=== PATIENT | female | born 1945 | race Caucasian/White ===

== ENCOUNTER 2018-07-23 21:00 | Inpatient (IN) | payer MEDICARE, OTHER, MEDICAID ==
[~2018-07-23 21:00] MED LIST: ATROPINE 1 MG/10 ML SYRINGE; CA CHLORIDE 10% 10 ML SYRINGE; DOPamine-D5W 1.6 MG/ML 250 ML; EPINEPHrine 0.1 MG/ML SYG; ETOMIDATE 20 MG INJ; NA BICARBONATE 8.4% 50 ML SYG; ROCURONIUM 50 MG INJ
[2018-07-23] MEDS: SOD CHLORIDE 0.9% 1,000 ML IV (21:05)
[2018-07-23] MEDS: ETOMIDATE 20 MG INJ IV (21:05)
[2018-07-23] MEDS: ROCURONIUM 50 MG INJ IV (21:06)
[2018-07-23] MEDS ORDERED: PROPOFOL 100 ML (21:10)
[2018-07-23] MEDS: PROPOFOL 100 ML IV (21:15)
[2018-07-23] MEDS: LEVETIRACETAM 1000 MG (PMX) 100 ML IVPB (21:29)
[2018-07-23 21:42] LABS: ADD MAN DIFF? NO
[2018-07-23 21:43] LABS: WHITE BLOOD COUNT 7.3 10^3/ul (4.8-10.8)
[2018-07-23 21:43] LABS: BASOPHILS % 0.1 % (0.0-2.0); EOSINOPHILS % 0.1 % (0.0-7.0); HEMATOCRIT 36.9 % (37.0-47.0); HEMOGLOBIN 12.7 g/dl (12.0-16.0); LYMPHOCYTES # 2.1 10^3/ul (0.8-2.9); LYMPHOCYTES % 28.1 % (15.0-51.0); MEAN CORPUSCULAR HEMOGLOBIN 31.7 pg (29.0-33.0); MEAN CORPUSCULAR HGB CONC 34.4 g/dl (32.0-37.0); MEAN PLATELET VOLUME 10.4 fl (7.4-10.4); MONOCYTE # 1.1 10^3/ul (0.3-0.9); MONOCYTES % 14.5 % (0.0-11.0); NEUTROPHIL # 4.1 10^3/ul (1.6-7.5); NEUTROPHILS % 56.9 % (39.0-77.0); PLATELET COUNT 149 10^3/UL (140-415); RED BLOOD COUNT 4.01 10^6/ul (4.20-5.40); RED CELL DISTRIBUTION WIDTH 12.7 % (11.5-14.5)
[2018-07-23 21:47] LABS: INR 1.04; PROTIME 13.7 Sec (11.9-14.9); PT RATIO 1.1
[2018-07-23 21:48] LABS: PARTIAL THROMBOPLASTIN TIME 28.3 Sec (25.0-35.0)
[2018-07-23 21:49] LABS: ANION GAP 16 (8-16); BLOOD UREA NITROGEN 11 mg/dl (7-20); CALCIUM 8.1 mg/dl (8.4-10.2); CARBON DIOXIDE 25 mmol/L (21-31); CHLORIDE 94 mmol/L (97-110); GLUCOSE 108 mg/dl (70-220); POTASSIUM 4.4 mmol/L (3.5-5.1); SODIUM 131 mmol/L (135-144)
[2018-07-23 21:53] LABS: ETHANOL < 10.0 mg/dl
[2018-07-23 22:01] LABS: TROPONIN-I < 0.012 ng/ml (0.000-0.120); VALPROATE 72 ug/ml (50-100)
[2018-07-23 22:03] LABS: CARBAMAZEPINE (TEGRETOL) < 3.0 ug/ml (8.0-12.0); PHENYTOIN (DILANTIN) < 3.0 ug/ml (10.0-20.0)
[2018-07-23 22:16] LABS: AMPHETAMINE/METHAMPHETAMINE Negative (NEGATIVE); BARBITURATES Negative (NEGATIVE); BENZODIAZEPINES Negative (NEGATIVE); CANNABINOIDS Negative (NEGATIVE); COCAINE Negative (NEGATIVE); OPIATES Negative (NEGATIVE)
[2018-07-23 23:03] LABS: AADO2 Arterial 161.2 mmHg (7.0-24.0); Allen Test ACCEPTAB; Arterial Base Excess 0.8 mmol/L (-3.0-3); Arterial Blood Gas Oxygen Sat 96.6 mmHG (95.0-100.0); Arterial COHb 0.1 % (0.0-3.0); Arterial Fraction of Oxyhgb 96.3 % (93.0-99.0); Arterial HCO3 24.3 mmol/L (22.0-26.0); Arterial MetHb 0.2 % (0.0-1.5); Arterial Total Hemglobin 14.5 g/dl (12.0-18.0); Arterial pCO2 35.7 mmhg (35-45); MODE VENT - AC; Site Right Radial
[2018-07-24] MEDS ORDERED: ONDANSETRON 4 MG INJ IV
[2018-07-24] MEDS ORDERED: LORAZEPAM 2 MG INJ IV
[2018-07-24] MEDS ORDERED: ALBUTEROL HFA 8 GM INHALER INH
[2018-07-24] MEDS ORDERED: IPRATROPIUM (HFA) 12.9 GM INHALER INH
[2018-07-24] MEDS: MIDAZOLAM (DRIP) 50 mg/50 mL 50 ML IV ×3 (00:29→21:03)
[2018-07-24] MEDS: DEXTROSE 5%-0.45% NACL 1,000 ML IV ×3 (00:36→21:02)
[2018-07-24 01:30] LABS: HEMOGLOBIN A1C 5.5 % (0-5.9)
[2018-07-24 07:03] LABS: ADD MAN DIFF? NO
[2018-07-24 07:16] LABS: ABNORMAL IP MESSAGE 1; BASOPHILS % 0.3 % (0.0-2.0); EOSINOPHILS % 0.3 % (0.0-7.0); HEMATOCRIT 39.2 % (37.0-47.0); HEMOGLOBIN 13.8 g/dl (12.0-16.0); LYMPHOCYTES # 3.5 10^3/ul (0.8-2.9); LYMPHOCYTES % 29.2 % (15.0-51.0); MEAN CORPUSCULAR HEMOGLOBIN 31.9 pg (29.0-33.0); MEAN CORPUSCULAR HGB CONC 35.2 g/dl (32.0-37.0); MEAN CORPUSCULAR VOLUME 90.5 fl (82.0-101.0); MONOCYTE # 1.9 10^3/ul (0.3-0.9); MONOCYTES % 15.7 % (0.0-11.0); NEUTROPHIL # 6.4 10^3/ul (1.6-7.5); NEUTROPHILS % 53.8 % (39.0-77.0); RED BLOOD COUNT 4.33 10^6/ul (4.20-5.40); RED CELL DISTRIBUTION WIDTH 12.9 % (11.5-14.5)
[2018-07-24 07:29] LABS: PLATELET COUNT 106 10^3/UL (140-415); POSITIVE DIFF @See below
[2018-07-24] MEDS: LEVETIRACETAM 500 MG TAB PO ×2 (08:11→20:54)
[2018-07-24] MEDS: ASPIRIN (EC) 81 MG TAB PO (08:12)
[2018-07-24] MEDS: METOPROLOL 25 MG TAB PO ×2 (08:12→20:53)
[2018-07-24] MEDS: FAMOTIDINE 20 MG INJ IV ×2 (08:12→20:54)
[2018-07-24 08:49] LABS: ALBUMIN 3.5 g/dl (3.3-4.9); ALBUMIN/GLOBULIN RATIO 1.12; ALKALINE PHOSPHATASE 70 IU/L (42-121); ANION GAP 13 (8-16); ASPARTATE AMINO TRANSFERASE 49 IU/L (15-46); BILIRUBIN,INDIRECT 0.4 mg/dl (0-1.1); BILIRUBIN,TOTAL 0.4 mg/dl (0.2-1.3); BLOOD UREA NITROGEN 10 mg/dl (7-20); CALCIUM 9.1 mg/dl (8.4-10.2); CARBON DIOXIDE 25 mmol/L (21-31); CHLORIDE 101 mmol/L (97-110); CREATININE 0.74 mg/dl (0.44-1.00); GLUCOSE 77 mg/dl (70-220); MAGNESIUM 1.8 mg/dl (1.7-2.5); POTASSIUM 3.8 mmol/L (3.5-5.1); SODIUM 135 mmol/L (135-144); TOTAL PROTEIN 6.6 g/dl (6.1-8.1)
[2018-07-24 08:59] LABS: ALANINE AMINOTRANSFERASE < 6 IU/L (13-69)
[2018-07-24] MEDS ORDERED: VALPROIC ACID (50 MG/ML PO SYG) NGT ×2 (09:00→09:09)
[2018-07-24 10:58] LABS: ANISOCYTOSIS 1+ (0-0); BAND NEUTROPHILS #M 0.3 10^3/ul (0.0-0.6); BAND NEUTROPHILS % (M) 3 % (0-4); LYMPHOCYTES #M 2.8 10^3/ul (0.8-2.9); LYMPHOCYTES % (M) 24 % (15-51); MONOCYTE #M 1.6 10^3/ul (0.3-0.9); MONOCYTES % (M) 14 % (0-11); PLATELET ESTIMATE DECREASED; POLYCHROMASIA 1+ (0-0); REACTIVE LYMPHOCYTES #M 1.2 10^3/ul (0.0-0.0); REACTIVE LYMPHOCYTES% (M) 10 % (0-0); SEG NEUT #M 5.9 10^3/ul (1.6-7.5); SEGMENTED NEUTROPHILS (M) % 49 % (39-77); SMUDGE%M 4 % (0-0)
[2018-07-24 15:21] LABS: ADD UMIC YES; UR ASCORBIC ACID NEGATIVE (NEGATIVE); UR BACTERIA MODERATE /HPF (NONE SEEN); UR BILIRUBIN (Dip) NEGATIVE (NEGATIVE); UR BLOOD (Dip) 1+ mg/dL (NEGATIVE); UR CLARITY SLIGHTLY CLOUDY (CLEAR); UR COLOR YELLOW (YELLOW); UR GLUCOSE (Dip) NEGATIVE (NEGATIVE); UR KETONES (Dip) NEGATIVE (NEGATIVE); UR LEUKOCYTE ESTERASE (Dip) 2+ Leu/ul (NEGATIVE); UR NITRITE (Dip) POSITIVE (NEGATIVE); UR RBC 2 /HPF (0-5); UR SPECIFIC GRAVITY (Dip) 1.006 (1.003-1.030); UR SQUAMOUS EPITHELIAL CELL FEW /HPF (FEW); UR TOTAL PROTEIN (Dip) NEGATIVE (NEGATIVE); UR UROBILINOGEN (Dip) NEGATIVE (NEGATIVE); UR WBC 4 /HPF (0-5)
[2018-07-24] MEDS: ATORVASTATIN 10 MG TAB PO (20:53)
[2018-07-24] MEDS: VALPROIC ACID LIQUID CUP 250 MG/5 ML CUP NGT (20:53)
[2018-07-24] MEDS ORDERED: NON-FORMULARY/PATIENT OWN MED (Simvastatin 20 MG) PO (21:00)
[2018-07-25] MEDS: DEXTROSE 5%-0.45% NACL 1,000 ML IV ×3 (04:34→17:43)
[2018-07-25 05:16] LABS: ADD MAN DIFF? NO
[2018-07-25 05:25] LABS: BASOPHILS % 0.2 % (0.0-2.0); EOSINOPHILS % 0.4 % (0.0-7.0); HEMATOCRIT 38.2 % (37.0-47.0); HEMOGLOBIN 13.1 g/dl (12.0-16.0); LYMPHOCYTES # 2.3 10^3/ul (0.8-2.9); LYMPHOCYTES % 23.3 % (15.0-51.0); MEAN CORPUSCULAR HEMOGLOBIN 31.5 pg (29.0-33.0); MEAN CORPUSCULAR HGB CONC 34.3 g/dl (32.0-37.0); MEAN CORPUSCULAR VOLUME 91.8 fl (82.0-101.0); MEAN PLATELET VOLUME 9.6 fl (7.4-10.4); MONOCYTE # 1.4 10^3/ul (0.3-0.9); MONOCYTES % 13.9 % (0.0-11.0); NEUTROPHILS % 61.7 % (39.0-77.0); PLATELET COUNT 132 10^3/UL (140-415); RED BLOOD COUNT 4.16 10^6/ul (4.20-5.40); RED CELL DISTRIBUTION WIDTH 13.1 % (11.5-14.5)
[2018-07-25 05:25] LABS: WHITE BLOOD COUNT 9.8 10^3/ul (4.8-10.8)
[2018-07-25 05:58] LABS: MAGNESIUM 1.7 mg/dl (1.7-2.5)
[2018-07-25 06:02] LABS: ALBUMIN/GLOBULIN RATIO 0.96; ANION GAP 10 (8-16); BILIRUBIN,TOTAL 0.4 mg/dl (0.2-1.3)
[2018-07-25 06:12] LABS: ALANINE AMINOTRANSFERASE 17 IU/L (13-69); ALKALINE PHOSPHATASE 52 IU/L (42-121); ASPARTATE AMINO TRANSFERASE 18 IU/L (15-46); BILIRUBIN,INDIRECT 0.4 mg/dl (0-1.1); BLOOD UREA NITROGEN 5 mg/dl (7-20); CALCIUM 8.6 mg/dl (8.4-10.2); CARBON DIOXIDE 27 mmol/L (21-31); CHLORIDE 102 mmol/L (97-110); CREATININE 0.71 mg/dl (0.44-1.00); GLUCOSE 118 mg/dl (70-220); POTASSIUM 3.6 mmol/L (3.5-5.1); SODIUM 135 mmol/L (135-144)
[2018-07-25 06:13] LABS: ALBUMIN 2.7 g/dl (3.3-4.9); TOTAL PROTEIN 5.5 g/dl (6.1-8.1)
[2018-07-25 07:25] LABS: IONIZED CALCIUM 1.1 mmol/L (1.1-1.4)
[2018-07-25] MEDS: LEVETIRACETAM 500 MG TAB PO ×2 (08:03→22:10)
[2018-07-25] MEDS: METOPROLOL 25 MG TAB PO ×2 (08:03→22:11)
[2018-07-25] MEDS: ASPIRIN (EC) 81 MG TAB PO (08:03)
[2018-07-25] MEDS: VALPROIC ACID LIQUID CUP 250 MG/5 ML CUP NGT ×2 (08:03→21:00)
[2018-07-25] MEDS: FAMOTIDINE 20 MG INJ IV (08:10)
[2018-07-25 14:07] LABS: AADO2 Arterial 48.4 mmHg (7.0-24.0); Allen Test ACCEPTAB; Arterial Base Excess 2.5 mmol/L (-3.0-3); Arterial Blood Gas Oxygen Sat 98.4 mmHG (95.0-100.0); Arterial COHb 0.2 % (0.0-3.0); Arterial MetHb 0.2 % (0.0-1.5); Arterial Total Hemglobin 14.8 g/dl (12.0-18.0); Arterial pCO2 36.9 mmhg (35-45); Blood Gas PS 10; MODE VENT - CPAP; Site Right Radial
[2018-07-25] MEDS ORDERED: hydrALAzine 20 MG INJ IV (18:30)
[2018-07-25] MEDS: FAMOTIDINE 20 MG TAB GTB (22:11)
[2018-07-25] MEDS: ATORVASTATIN 10 MG TAB PO (22:11)
[2018-07-26 03:52] LABS: PHENOBARBITAL <5.0 mg/L (15.0-40.0)
[2018-07-26] MEDS: DEXTROSE 5%-0.45% NACL 1,000 ML IV ×2 (04:57→15:53)
[2018-07-26 09:18] LABS: ADD MAN DIFF? NO
[2018-07-26 09:20] LABS: BASOPHILS % 0.4 % (0.0-2.0); EOSINOPHILS # 0.1 10^3/ul (0.0-0.5); HEMATOCRIT 39.8 % (37.0-47.0); HEMOGLOBIN 13.4 g/dl (12.0-16.0); LYMPHOCYTES # 2.6 10^3/ul (0.8-2.9); LYMPHOCYTES % 29.3 % (15.0-51.0); MEAN CORPUSCULAR HEMOGLOBIN 31.3 pg (29.0-33.0); MEAN CORPUSCULAR HGB CONC 33.7 g/dl (32.0-37.0); MEAN PLATELET VOLUME 9.4 fl (7.4-10.4); MONOCYTE # 1.4 10^3/ul (0.3-0.9); MONOCYTES % 15.4 % (0.0-11.0); NEUTROPHIL # 4.8 10^3/ul (1.6-7.5); NEUTROPHILS % 53.3 % (39.0-77.0); PLATELET COUNT 130 10^3/UL (140-415); RED BLOOD COUNT 4.28 10^6/ul (4.20-5.40); RED CELL DISTRIBUTION WIDTH 13.1 % (11.5-14.5)
[2018-07-26 09:40] LABS: ANION GAP 9 (8-16); BLOOD UREA NITROGEN 6 mg/dl (7-20); CALCIUM 8.9 mg/dl (8.4-10.2); CARBON DIOXIDE 30 mmol/L (21-31); CHLORIDE 103 mmol/L (97-110); CREATININE 0.63 mg/dl (0.44-1.00); GLUCOSE 103 mg/dl (70-220); POTASSIUM 3.6 mmol/L (3.5-5.1); SODIUM 138 mmol/L (135-144)
[2018-07-26] MEDS: LEVETIRACETAM 500 MG TAB PO ×2 (10:07→21:42)
[2018-07-26] MEDS: VALPROIC ACID LIQUID CUP 250 MG/5 ML CUP NGT (10:07)
[2018-07-26] MEDS: ASPIRIN (EC) 81 MG TAB PO (10:08)
[2018-07-26] MEDS: METOPROLOL 25 MG TAB PO ×2 (10:08→21:45)
[2018-07-26] MEDS: FAMOTIDINE 20 MG TAB GTB ×2 (10:08→21:42)
[2018-07-26] MEDS: CEFTRIAXONE 1 GM/50 ML (PMX) 50 ML IVPB (11:20)
[2018-07-26] MEDS: ATORVASTATIN 10 MG TAB PO (21:42)
[2018-07-27] MEDS: VALPROIC ACID 250 MG CAP PO ×2 (01:10→08:39)
[2018-07-27] MEDS: DEXTROSE 5%-0.45% NACL 1,000 ML IV ×2 (01:11→15:28)
[2018-07-27] MEDS: ASPIRIN (EC) 81 MG TAB PO (08:38)
[2018-07-27] MEDS: METOPROLOL 25 MG TAB PO (08:39)
[2018-07-27] MEDS: LEVETIRACETAM 500 MG TAB PO (08:39)
[2018-07-27] MEDS: FAMOTIDINE 20 MG TAB GTB (08:39)
[2018-07-27] MEDS: CEFTRIAXONE 1 GM/50 ML (PMX) 50 ML IVPB (12:13)
[2018-07-27] MEDS ORDERED: BALSAM PERU/CASTOR OIL 60 GM TUBE TOP (21:00)
== END 2018-07-27 19:35 | disposition home health service (06) | DRG 100 ==
LOC: ICU 22:26 → PP2 07-26 12:52 → E/R 21:00 → ICU 07-24 05:08
PROVIDERS: Internal Medicine
PROC: 0BH17EZ Insertion of Endotracheal Airway into Trachea, Via Natural or Artificial Opening (ICD-10-PCS; principal; 2018-07-24)
PROC: 5A1945Z Respiratory Ventilation, 24-96 Consecutive Hours (ICD-10-PCS; 2018-07-24)
DX: G40.901 Epilepsy, unspecified, not intractable, with status epilepticus (principal); G93.40 Encephalopathy, unspecified; J96.01 Acute respiratory failure with hypoxia; E87.1 Hypo-osmolality and hyponatremia; N39.0 Urinary tract infection, site not specified; I10 Essential (primary) hypertension; D69.6 Thrombocytopenia, unspecified; I69.998 Other sequelae following unspecified cerebrovascular disease; B96.20 Unspecified Escherichia coli [E. coli] as the cause of diseases classified elsewhere
CPT/HCPCS: 31500; 36415; 36600; 70450; 70551; 71045; 80048; 80053; 80156; 80164; 80184; 80185; 80307; 81001; 82330; 82803; 82962; 83036; 83735; 84484; 85025; 85610; 85730; 87081; 87086; 92610; 94002; 94003; 94770; 95819; 96361; 96374; 97162; 99291-25

== ENCOUNTER 2019-03-22 04:18 | Inpatient (IN) | payer MEDICARE, OTHER ==
[2019-03-22 04:54] LABS: ADD MAN DIFF? NO
[2019-03-22 05:00] LABS: WHITE BLOOD COUNT 8.3 10^3/ul (4.8-10.8)
[2019-03-22 05:00] LABS: ABNORMAL IP MESSAGE 1; BASOPHIL # 0.1 10^3/ul (0.0-0.1); BASOPHILS % 0.7 % (0.0-2.0); HEMOGLOBIN 14.8 g/dl (12.0-16.0); LYMPHOCYTES # 3.8 10^3/ul (0.8-2.9); LYMPHOCYTES % 46.1 % (15.0-51.0); MEAN CORPUSCULAR HEMOGLOBIN 31.6 pg (29.0-33.0); MEAN CORPUSCULAR HGB CONC 34.4 g/dl (32.0-37.0); MEAN CORPUSCULAR VOLUME 91.9 fl (82.0-101.0); MEAN PLATELET VOLUME 10.3 fl (7.4-10.4); MONOCYTE # 1.3 10^3/ul (0.3-0.9); MONOCYTES % 15.4 % (0.0-11.0); NEUTROPHIL # 2.9 10^3/ul (1.6-7.5); NEUTROPHILS % 35.6 % (39.0-77.0); RED BLOOD COUNT 4.68 10^6/ul (4.20-5.40); RED CELL DISTRIBUTION WIDTH 13.7 % (11.5-14.5)
[2019-03-22 05:04] LABS: POSITIVE DIFF @See below
[2019-03-22 05:17] LABS: ALANINE AMINOTRANSFERASE 18 IU/L (13-69); ALBUMIN 3.2 g/dl (3.3-4.9); ALBUMIN/GLOBULIN RATIO 0.78; ALKALINE PHOSPHATASE 82 IU/L (42-121); ANION GAP 8 (5-13); ASPARTATE AMINO TRANSFERASE 33 IU/L (15-46); BILIRUBIN,INDIRECT 0.6 mg/dl (0-1.1); BILIRUBIN,TOTAL 0.6 mg/dl (0.2-1.3); BLOOD UREA NITROGEN 12 mg/dl (7-20); CALCIUM 9.1 mg/dl (8.4-10.2); CARBON DIOXIDE 22 mmol/L (21-31); CHLORIDE 106 mmol/L (97-110); CREATININE 0.78 mg/dl (0.44-1.00); GLUCOSE 100 mg/dl (70-220); POTASSIUM 4.6 mmol/L (3.5-5.1); SODIUM 136 mmol/L (135-144); TOTAL PROTEIN 7.3 g/dl (6.1-8.1)
[2019-03-22 05:18] LABS: INR 0.97
[2019-03-22 05:19] LABS: ACETAMINOPHEN < 10.0 ug/ml (10.0-30.0); ETHANOL < 10.0 mg/dl (0-0); PARTIAL THROMBOPLASTIN TIME 27.7 Sec (23.0-35.0); SALICYLATE < 1.0 mg/dl (5.0-30.0)
[2019-03-22 05:27] LABS: B-TYPE NATRIURETIC PEPTIDE 417 PG/ML (0-125); TROPONIN-I < 0.012 ng/ml (0.000-0.120)
[2019-03-22 05:42] LABS: PLATELET COUNT 88 10^3/UL (140-415); PLATELET ESTIMATE DECREASED
[2019-03-22 06:14] LABS: LACTIC ACID 1.7 mmol/L (0.5-2.0)
[2019-03-22] MEDS ORDERED: ACETAMINOPHEN 325 MG TAB PO (06:30)
[2019-03-22] MEDS ORDERED: NACL 0.9% 3 ML SYG IV (06:30)
[2019-03-22] MEDS ORDERED: ONDANSETRON 4 MG INJ IV (06:30)
[2019-03-22 07:48] LABS: ADD UMIC YES; UR ASCORBIC ACID NEGATIVE (NEGATIVE); UR BACTERIA FEW /HPF (NONE SEEN); UR BILIRUBIN (Dip) NEGATIVE (NEGATIVE); UR BLOOD (Dip) NEGATIVE (NEGATIVE); UR CLARITY SLIGHTLY CLOUDY (CLEAR); UR COLOR YELLOW (YELLOW); UR GLUCOSE (Dip) NEGATIVE (NEGATIVE); UR KETONES (Dip) NEGATIVE (NEGATIVE); UR LEUKOCYTE ESTERASE (Dip) 3+ Leu/ul (NEGATIVE); UR NITRITE (Dip) NEGATIVE (NEGATIVE); UR RBC 2 /HPF (0-5); UR SPECIFIC GRAVITY (Dip) 1.004 (1.003-1.030); UR TOTAL PROTEIN (Dip) NEGATIVE (NEGATIVE); UR UROBILINOGEN (Dip) NEGATIVE (NEGATIVE); UR WBC 29 /HPF (0-5)
[2019-03-22 08:10] LABS: AMPHETAMINE/METHAMPHETAMINE Negative (NEGATIVE); BARBITURATES Negative (NEGATIVE); BENZODIAZEPINES Negative (NEGATIVE); CANNABINOIDS Negative (NEGATIVE); COCAINE Negative (NEGATIVE); OPIATES Negative (NEGATIVE)
[2019-03-22] MEDS: SOD CHLORIDE 0.9% 1,000 ML IV ×3 (08:11→20:24)
[2019-03-22 08:46] LABS: LACTIC ACID 1.5 mmol/L (0.5-2.0)
[2019-03-22 08:51] LABS: HEMOGLOBIN A1C 5.5 % (0-5.9)
[2019-03-22 08:54] LABS: MAGNESIUM 1.8 mg/dl (1.7-2.5)
[2019-03-22 08:54] LABS: CHOL/HDL RATIO 3.4 RATIO; CHOLESTEROL 93 mg/dl (100-200); HDL CHOLESTEROL 27 mg/dl (33-92); LDL CHOLESTEROL,CALCULATED 49 mg/dl; TRIGLYCERIDES 85 mg/dl (0-149)
[2019-03-22 08:59] LABS: VALPROATE 90 ug/ml (50-100)
[2019-03-22 11:41] LABS: LACTIC ACID 1.5 mmol/L (0.5-2.0)
[2019-03-22] MEDS ORDERED: ALBUTEROL 0.083% (NEB) 2.5 MG/3 ML AMP HHN (16:00)
[2019-03-22 16:39] LABS: VALPROATE 98 ug/ml (50-100)
[2019-03-22] MEDS: LEVOFLOXACIN 500MG/D5W (PMX) 100 ML IVPB (17:14)
[2019-03-22] MEDS: VALPROIC ACID 250 MG CAP PO (21:00)
[2019-03-22] MEDS: ATORVASTATIN 10 MG TAB PO (21:00)
[2019-03-22] MEDS: FAMOTIDINE 20 MG TAB PO (21:00)
[2019-03-22] MEDS: LOSARTAN 50 MG TAB PO (21:00)
[2019-03-22] MEDS: METOPROLOL 25 MG TAB PO (21:00)
[2019-03-23 06:48] LABS: ADD MAN DIFF? NO
[2019-03-23 06:58] LABS: BASOPHILS % 0.4 % (0.0-2.0); HEMOGLOBIN 12.7 g/dl (12.0-16.0); LYMPHOCYTES # 2.2 10^3/ul (0.8-2.9); LYMPHOCYTES % 38.2 % (15.0-51.0); MEAN CORPUSCULAR HEMOGLOBIN 31.4 pg (29.0-33.0); MEAN CORPUSCULAR HGB CONC 34.3 g/dl (32.0-37.0); MEAN CORPUSCULAR VOLUME 91.6 fl (82.0-101.0); MEAN PLATELET VOLUME 9.7 fl (7.4-10.4); MONOCYTE # 1.1 10^3/ul (0.3-0.9); MONOCYTES % 19.1 % (0.0-11.0); NEUTROPHIL # 2.3 10^3/ul (1.6-7.5); PLATELET COUNT 100 10^3/UL (140-415); RED BLOOD COUNT 4.04 10^6/ul (4.20-5.40); RED CELL DISTRIBUTION WIDTH 13.6 % (11.5-14.5)
[2019-03-23 06:58] LABS: WHITE BLOOD COUNT 5.7 10^3/ul (4.8-10.8)
[2019-03-23 07:27] LABS: PHOSPHORUS 3.7 mg/dl (2.5-4.9)
[2019-03-23 07:27] LABS: MAGNESIUM 1.7 mg/dl (1.7-2.5)
[2019-03-23 07:31] LABS: ALANINE AMINOTRANSFERASE 22 IU/L (13-69); ALBUMIN 2.4 g/dl (3.3-4.9); ALBUMIN/GLOBULIN RATIO 0.72; ALKALINE PHOSPHATASE 52 IU/L (42-121); ANION GAP 6 (5-13); ASPARTATE AMINO TRANSFERASE 42 IU/L (15-46); BILIRUBIN,INDIRECT 0.7 mg/dl (0-1.1); BILIRUBIN,TOTAL 0.7 mg/dl (0.2-1.3); BLOOD UREA NITROGEN 14 mg/dl (7-20); CALCIUM 8.6 mg/dl (8.4-10.2); CARBON DIOXIDE 23 mmol/L (21-31); CHLORIDE 107 mmol/L (97-110); CREATININE 0.83 mg/dl (0.44-1.00); GLUCOSE 80 mg/dl (70-220); POTASSIUM 4.6 mmol/L (3.5-5.1); SODIUM 136 mmol/L (135-144); TOTAL PROTEIN 5.7 g/dl (6.1-8.1)
[2019-03-23 07:44] LABS: FREE T4 (FREE THYROXINE) 1.81 ng/dl (0.78-2.44)
[2019-03-23] MEDS ORDERED: LEVOTHYROXINE 25 MCG TAB PO (09:00)
[2019-03-23] MEDS: VALPROIC ACID 250 MG CAP PO ×2 (09:38→21:51)
[2019-03-23] MEDS: BENAZEPRIL 10 MG TAB PO (09:38)
[2019-03-23] MEDS: FAMOTIDINE 20 MG TAB PO ×2 (09:39→21:52)
[2019-03-23] MEDS: LEVOTHYROXINE 25 MCG TAB PO (09:39)
[2019-03-23] MEDS: METOPROLOL 25 MG TAB PO ×2 (09:39→21:53)
[2019-03-23] MEDS: LOSARTAN 50 MG TAB PO ×2 (09:39→21:53)
[2019-03-23] MEDS: ASPIRIN (EC) 81 MG TAB PO (09:39)
[2019-03-23] MEDS: LORATADINE 10 MG TAB PO (09:39)
[2019-03-23] MEDS: SOD CHLORIDE 0.9% 1,000 ML IV (09:40)
[2019-03-23] MEDS: MAGNESIUM SULFATE 1 GM/D5W 100 ML IVPB (12:08)
[2019-03-23] MEDS: ENOXAPARIN 40 MG/0.4 ML SYG SC (12:32)
[2019-03-23] MEDS: LORAZEPAM 2 MG INJ IV ×2 (15:03→15:23)
[2019-03-23] MEDS ORDERED: LORAZEPAM 2 MG INJ IV (15:30)
[2019-03-23] MEDS: ATORVASTATIN 10 MG TAB PO (21:00)
[2019-03-24] MEDS: SOD CHLORIDE 0.9% 1,000 ML IV ×2 (01:09→15:14)
[2019-03-24 06:12] LABS: ADD MAN DIFF? NO
[2019-03-24 06:20] LABS: WHITE BLOOD COUNT 8.8 10^3/ul (4.8-10.8)
[2019-03-24 06:20] LABS: ABNORMAL IP MESSAGE 1; BASOPHILS % 0.3 % (0.0-2.0); HEMATOCRIT 37.5 % (37.0-47.0); HEMOGLOBIN 12.6 g/dl (12.0-16.0); LYMPHOCYTES # 2.9 10^3/ul (0.8-2.9); LYMPHOCYTES % 33.1 % (15.0-51.0); MEAN CORPUSCULAR HGB CONC 33.6 g/dl (32.0-37.0); MEAN CORPUSCULAR VOLUME 92.4 fl (82.0-101.0); MEAN PLATELET VOLUME 9.1 fl (7.4-10.4); MONOCYTE # 2.1 10^3/ul (0.3-0.9); MONOCYTES % 23.4 % (0.0-11.0); NEUTROPHIL # 3.7 10^3/ul (1.6-7.5); NEUTROPHILS % 42.1 % (39.0-77.0); PLATELET COUNT 132 10^3/UL (140-415); RED BLOOD COUNT 4.06 10^6/ul (4.20-5.40); RED CELL DISTRIBUTION WIDTH 13.7 % (11.5-14.5)
[2019-03-24 06:30] LABS: POSITIVE DIFF @See below
[2019-03-24 06:54] LABS: VALPROATE 54 ug/ml (50-100)
[2019-03-24 06:58] LABS: ANION GAP 7 (5-13); BLOOD UREA NITROGEN 14 mg/dl (7-20); CALCIUM 8.7 mg/dl (8.4-10.2); CARBON DIOXIDE 22 mmol/L (21-31); CHLORIDE 110 mmol/L (97-110); CREATININE 0.75 mg/dl (0.44-1.00); GLUCOSE 78 mg/dl (70-220); MAGNESIUM 1.9 mg/dl (1.7-2.5); PHOSPHORUS 3.8 mg/dl (2.5-4.9); POTASSIUM 4.2 mmol/L (3.5-5.1); SODIUM 139 mmol/L (135-144)
[2019-03-24] MEDS: VALPROIC ACID 250 MG CAP PO ×2 (08:07→20:41)
[2019-03-24] MEDS: FAMOTIDINE 20 MG TAB PO ×2 (08:07→20:41)
[2019-03-24] MEDS: LORATADINE 10 MG TAB PO (08:07)
[2019-03-24] MEDS: LEVOTHYROXINE 25 MCG TAB PO (08:08)
[2019-03-24] MEDS: ASPIRIN (EC) 81 MG TAB PO (08:08)
[2019-03-24] MEDS: LOSARTAN 50 MG TAB PO ×2 (08:08→20:42)
[2019-03-24] MEDS: BENAZEPRIL 10 MG TAB PO (08:08)
[2019-03-24] MEDS: METOPROLOL 25 MG TAB PO ×2 (08:09→20:42)
[2019-03-24] MEDS: ENOXAPARIN 40 MG/0.4 ML SYG SC (08:19)
[2019-03-24] MEDS: LEVOFLOXACIN 500MG/D5W (PMX) 100 ML IVPB (15:14)
[2019-03-24] MEDS: ATORVASTATIN 10 MG TAB PO (20:43)
[2019-03-25] MEDS: LEVOTHYROXINE 50 MCG TAB PO (05:44)
[2019-03-25] MEDS: SOD CHLORIDE 0.9% 1,000 ML IV (05:44)
[2019-03-25 06:01] LABS: ADD MAN DIFF? NO
[2019-03-25 06:12] LABS: WHITE BLOOD COUNT 7.5 10^3/ul (4.8-10.8)
[2019-03-25 06:12] LABS: ABNORMAL IP MESSAGE 1; BASOPHILS % 0.4 % (0.0-2.0); HEMATOCRIT 37.3 % (37.0-47.0); HEMOGLOBIN 12.8 g/dl (12.0-16.0); LYMPHOCYTES % 40.1 % (15.0-51.0); MEAN CORPUSCULAR HEMOGLOBIN 31.6 pg (29.0-33.0); MEAN CORPUSCULAR HGB CONC 34.3 g/dl (32.0-37.0); MEAN CORPUSCULAR VOLUME 92.1 fl (82.0-101.0); MEAN PLATELET VOLUME 9.5 fl (7.4-10.4); MONOCYTE # 1.7 10^3/ul (0.3-0.9); MONOCYTES % 22.4 % (0.0-11.0); NEUTROPHIL # 2.7 10^3/ul (1.6-7.5); NEUTROPHILS % 35.2 % (39.0-77.0); PLATELET COUNT 153 10^3/UL (140-415); RED BLOOD COUNT 4.05 10^6/ul (4.20-5.40); RED CELL DISTRIBUTION WIDTH 13.7 % (11.5-14.5)
[2019-03-25 06:23] LABS: POSITIVE DIFF @See below
[2019-03-25 06:38] LABS: ANION GAP 5 (5-13); BLOOD UREA NITROGEN 14 mg/dl (7-20); CALCIUM 7.9 mg/dl (8.4-10.2); CARBON DIOXIDE 23 mmol/L (21-31); CHLORIDE 112 mmol/L (97-110); CREATININE 0.71 mg/dl (0.44-1.00); GLUCOSE 107 mg/dl (70-220); SODIUM 140 mmol/L (135-144)
[2019-03-25] MEDS: VALPROIC ACID 250 MG CAP PO (08:19)
[2019-03-25] MEDS: LORATADINE 10 MG TAB PO (08:19)
[2019-03-25] MEDS: ASPIRIN (EC) 81 MG TAB PO (08:19)
[2019-03-25] MEDS: FAMOTIDINE 20 MG TAB PO (08:19)
[2019-03-25] MEDS: LOSARTAN 50 MG TAB PO (08:19)
[2019-03-25] MEDS: METOPROLOL 25 MG TAB PO (08:20)
[2019-03-25] MEDS: ENOXAPARIN 40 MG/0.4 ML SYG SC (08:31)
== END 2019-03-25 14:00 | disposition home or self-care (01) | DRG 884 ==
LOC: PP2 03-25 02:18 → E/R 04:18 → TEL 05:43
DX: F01.50 Vascular dementia, unspecified severity, without behavioral disturbance, psychotic disturbance, mood disturbance, and anxiety (principal); N39.0 Urinary tract infection, site not specified; E78.5 Hyperlipidemia, unspecified; E03.9 Hypothyroidism, unspecified; Z86.73 Personal history of transient ischemic attack (TIA), and cerebral infarction without residual deficits; I10 Essential (primary) hypertension; G40.909 Epilepsy, unspecified, not intractable, without status epilepticus; Z79.82 Long term (current) use of aspirin
CPT/HCPCS: 36415; 70450; 70551; 71045; 80048; 80053; 80061; 80164; 80307; 81001; 82962; 83036; 83605; 83735; 83880; 84100; 84439; 84443; 84484; 85025; 85610; 85730; 87040-91; 87081; 87086; 92610; 93005; 93306; 95819; 97110; 97162; 97530; 99285-25; G0378

== ENCOUNTER 2019-05-24 12:55 | Inpatient (IN) | payer MEDICARE, OTHER ==
[2019-05-24] MEDS: SODIUM CHLORIDE 0.9% 1L BAG IV* (13:35)
[2019-05-24 13:36] LABS: ABNORMAL IP MESSAGE 1; HEMATOCRIT 40.7 % (37.0-47.0); MEAN CORPUSCULAR HGB CONC 34.4 g/dl (32.0-37.0); MEAN PLATELET VOLUME 10.5 fl (7.4-10.4); PLATELET COUNT 59 10^3/UL (140-415); RED BLOOD COUNT 4.24 10^6/ul (4.20-5.40); RED CELL DISTRIBUTION WIDTH 13.3 % (11.5-14.5)
[2019-05-24 13:36] LABS: WHITE BLOOD COUNT 12.8 10^3/ul (4.8-10.8)
[2019-05-24 13:40] LABS: ADD MAN DIFF? YES; POSITIVE DIFF @See below
[2019-05-24] MEDS: LEVOFLOXACIN 750MG/D5W (PMX) 150 ML IVPB (13:43)
[2019-05-24 13:56] LABS: ALBUMIN 3.4 g/dl (3.3-4.9); ALBUMIN/GLOBULIN RATIO 0.79; ALKALINE PHOSPHATASE 52 IU/L (42-121); ANION GAP 10 (5-13); ASPARTATE AMINO TRANSFERASE 42 IU/L (15-46); BILIRUBIN,INDIRECT 0.7 mg/dl (0-1.1); BILIRUBIN,TOTAL 0.7 mg/dl (0.2-1.3); BLOOD UREA NITROGEN 28 mg/dl (7-20); CALCIUM 9.6 mg/dl (8.4-10.2); CARBON DIOXIDE 28 mmol/L (21-31); CHLORIDE 97 mmol/L (97-110); CREATININE 0.88 mg/dl (0.44-1.00); GLUCOSE 189 mg/dl (70-220); POTASSIUM 4.4 mmol/L (3.5-5.1); SODIUM 135 mmol/L (135-144); TOTAL PROTEIN 7.7 g/dl (6.1-8.1)
[2019-05-24 13:57] LABS: ALANINE AMINOTRANSFERASE < 6 IU/L (13-69)
[2019-05-24 14:07] LABS: TROPONIN-I < 0.012 ng/ml (0.000-0.120)
[2019-05-24 14:16] LABS: ANISOCYTOSIS 1+ (0-0); BAND NEUTROPHILS #M 0.6 10^3/ul (0.0-0.6); BAND NEUTROPHILS % (M) 5 % (0-4); LYMPHOCYTES #M 3.3 10^3/ul (0.8-2.9); LYMPHOCYTES % (M) 26 % (15-51); MONOCYTE #M 2.1 10^3/ul (0.3-0.9); MONOCYTES % (M) 17 % (0-11); MYELOCYTES #M 0.1 10^3/ul (0.0-0.0); MYELOCYTES % (M) 1 % (0-0); PLATELET ESTIMATE DECREASED; SEG NEUT #M 6.6 10^3/ul (1.6-7.5); SEGMENTED NEUTROPHILS (M) % 51 % (39-77); SMUDGE%M 56 % (0-0)
[2019-05-24 14:44] LABS: INR 0.99; PROTIME 13.2 Sec (11.9-14.9)
[2019-05-24 14:45] LABS: PARTIAL THROMBOPLASTIN TIME 27.3 Sec (23.0-35.0)
[2019-05-24] MEDS ORDERED: ONDANSETRON 4 MG INJ IV ×2 (15:00→16:00)
[2019-05-24] MEDS ORDERED: ACETAMINOPHEN 325 MG TAB PO ×2 (15:00→16:00)
[2019-05-24 15:16] LABS: ADD UMIC YES; UR ASCORBIC ACID NEGATIVE (NEGATIVE); UR BACTERIA FEW /HPF (NONE SEEN); UR BILIRUBIN (Dip) NEGATIVE (NEGATIVE); UR BLOOD (Dip) 2+ mg/dL (NEGATIVE); UR CLARITY CLOUDY (CLEAR); UR COLOR AMBER (YELLOW); UR GLUCOSE (Dip) NEGATIVE (NEGATIVE); UR KETONES (Dip) TRACE mg/dL (NEGATIVE); UR LEUKOCYTE ESTERASE (Dip) 3+ Leu/ul (NEGATIVE); UR MUCUS FEW /HPF (NONE SEEN); UR NITRITE (Dip) POSITIVE (NEGATIVE); UR RBC 10 /HPF (0-5); UR SPECIFIC GRAVITY (Dip) 1.014 (1.003-1.030); UR TOTAL PROTEIN (Dip) 1+ mg/dl (NEGATIVE); UR UROBILINOGEN (Dip) NEGATIVE (NEGATIVE); UR WBC 144 /HPF (0-5)
[2019-05-24] MEDS: VANCOMYCIN 1 GM (PMX) 250 ML IVPB (15:25)
[2019-05-24] MEDS ORDERED: NACL 0.9% 3 ML SYG IV (16:00)
[2019-05-24] MEDS ORDERED: DOCUSATE SODIUM 100 MG CAP PO (16:00)
[2019-05-24] MEDS ORDERED: morphine 2 MG INJ IV (16:00)
[2019-05-24] MEDS ORDERED: HYDROCODONE/APAP (5/325) TAB PO (16:00)
[2019-05-24] MEDS ORDERED: ZOLPIDEM 5 MG TAB PO (16:00)
[2019-05-24] MEDS ORDERED: CEFTRIAXONE 1 GM/50 ML (PMX) 50 ML IVPB (16:00)
[2019-05-24] MEDS: SOD CHLORIDE 0.9% 1,000 ML IV (18:32)
[2019-05-24] MEDS: PIPER-TAZO 3.375 GM IV (PMX) 100 ML IVPB (18:32)
[2019-05-24 18:42] LABS: LACTIC ACID 1.8 mmol/L (0.5-2.0)
[2019-05-24 20:20] LABS: LACTIC ACID 1.2 mmol/L (0.5-2.0)
[2019-05-24] MEDS ORDERED: DIVALPROEX (ER) 500 MG TAB PO (21:00)
[2019-05-25] MEDS: PIPER-TAZO 3.375 GM IV (PMX) 100 ML IVPB ×5 (00:04→23:54)
[2019-05-25 05:10] LABS: ADD MAN DIFF? NO
[2019-05-25 05:22] LABS: ABNORMAL IP MESSAGE 1; BASOPHILS % 0.1 % (0.0-2.0); HEMATOCRIT 32.7 % (37.0-47.0); HEMOGLOBIN 11.3 g/dl (12.0-16.0); LYMPHOCYTES # 2.2 10^3/ul (0.8-2.9); LYMPHOCYTES % 32.8 % (15.0-51.0); MEAN CORPUSCULAR HGB CONC 34.6 g/dl (32.0-37.0); MEAN CORPUSCULAR VOLUME 95.6 fl (82.0-101.0); MEAN PLATELET VOLUME 9.8 fl (7.4-10.4); MONOCYTE # 1.3 10^3/ul (0.3-0.9); MONOCYTES % 19.3 % (0.0-11.0); NEUTROPHIL # 3.2 10^3/ul (1.6-7.5); NEUTROPHILS % 47.1 % (39.0-77.0); PLATELET COUNT 51 10^3/UL (140-415); RED BLOOD COUNT 3.42 10^6/ul (4.20-5.40); RED CELL DISTRIBUTION WIDTH 13.1 % (11.5-14.5)
[2019-05-25 05:22] LABS: WHITE BLOOD COUNT 6.8 10^3/ul (4.8-10.8)
[2019-05-25 05:27] LABS: POSITIVE DIFF @See below
[2019-05-25 05:35] LABS: ANION GAP 4 (5-13); BLOOD UREA NITROGEN 18 mg/dl (7-20); CALCIUM 8.7 mg/dl (8.4-10.2); CARBON DIOXIDE 30 mmol/L (21-31); CHLORIDE 105 mmol/L (97-110); CREATININE 0.77 mg/dl (0.44-1.00); GLUCOSE 90 mg/dl (70-220); MAGNESIUM 1.5 mg/dl (1.7-2.5); PHOSPHORUS 2.5 mg/dl (2.5-4.9); POTASSIUM 3.5 mmol/L (3.5-5.1); SODIUM 139 mmol/L (135-144)
[2019-05-25] MEDS: SOD CHLORIDE 0.9% 1,000 ML IV ×4 (05:37→22:50)
[2019-05-25 06:52] LABS: HEMOGLOBIN A1C 4.8 % (0-5.9)
[2019-05-25] MEDS ORDERED: LEVOTHYROXINE 25 MCG TAB PO (07:00)
[2019-05-25] MEDS ORDERED: ASPIRIN (EC) 81 MG TAB PO (09:00)
[2019-05-25] MEDS ORDERED: RISPERIDONE 1 MG TAB PO (09:00)
[2019-05-25] MEDS ORDERED: BENAZEPRIL 5 MG TAB PO (09:00)
[2019-05-25] MEDS: LEVETIRACETAM 500 MG (PMX) 100 ML IVPB (14:34)
[2019-05-25] MEDS ORDERED: LORAZEPAM 2 MG INJ IV (15:30)
[2019-05-25] MEDS: MAGNESIUM SULFATE 3 GM in DEXTROSE 5% 100 ML IVPB (16:26)
[2019-05-25] MEDS: ENOXAPARIN 40 MG/0.4 ML SYG SC (17:47)
[2019-05-25] MEDS: BALSAM PERU/CASTOR OIL 60 GM TUBE TOP (21:05)
[2019-05-25] MEDS ORDERED: VANCOMYCIN IV PER PHARMACY XX (23:30)
[2019-05-26] MEDS: VANCOMYCIN 750 MG (PMX) 250 ML IVPB (01:35)
[2019-05-26] MEDS: PIPER-TAZO 3.375 GM IV (PMX) 100 ML IVPB ×2 (06:02→12:05)
[2019-05-26 06:28] LABS: ADD MAN DIFF? NO
[2019-05-26 06:32] LABS: ABNORMAL IP MESSAGE 1; BASOPHILS % 0.5 % (0.0-2.0); EOSINOPHILS % 0.2 % (0.0-7.0); HEMATOCRIT 33.2 % (37.0-47.0); HEMOGLOBIN 11.6 g/dl (12.0-16.0); LYMPHOCYTES # 2.3 10^3/ul (0.8-2.9); LYMPHOCYTES % 38.2 % (15.0-51.0); MEAN CORPUSCULAR HEMOGLOBIN 33.2 pg (29.0-33.0); MEAN CORPUSCULAR HGB CONC 34.9 g/dl (32.0-37.0); MEAN CORPUSCULAR VOLUME 95.1 fl (82.0-101.0); MEAN PLATELET VOLUME 9.3 fl (7.4-10.4); MONOCYTE # 1.1 10^3/ul (0.3-0.9); NEUTROPHIL # 2.6 10^3/ul (1.6-7.5); NEUTROPHILS % 42.6 % (39.0-77.0); PLATELET COUNT 65 10^3/UL (140-415); RED BLOOD COUNT 3.49 10^6/ul (4.20-5.40); RED CELL DISTRIBUTION WIDTH 12.9 % (11.5-14.5)
[2019-05-26 06:32] LABS: WHITE BLOOD COUNT 6.1 10^3/ul (4.8-10.8)
[2019-05-26 06:33] LABS: POSITIVE DIFF @See below
[2019-05-26 06:48] LABS: ANION GAP 6 (5-13); BLOOD UREA NITROGEN 12 mg/dl (7-20); CARBON DIOXIDE 28 mmol/L (21-31); CHLORIDE 105 mmol/L (97-110); CREATININE 0.73 mg/dl (0.44-1.00); GLUCOSE 80 mg/dl (70-220); MAGNESIUM 2.1 mg/dl (1.7-2.5); POTASSIUM 3.7 mmol/L (3.5-5.1); SODIUM 139 mmol/L (135-144)
[2019-05-26] MEDS ORDERED: ENOXAPARIN 40 MG/0.4 ML SYG SC (09:00)
[2019-05-26] MEDS: BALSAM PERU/CASTOR OIL 60 GM TUBE TOP ×2 (09:09→21:51)
[2019-05-26] MEDS: ENOXAPARIN 40 MG/0.4 ML SYG SC (09:12)
[2019-05-26] MEDS: SOD CHLORIDE 0.9% 1,000 ML IV (12:06)
[2019-05-26 13:53] LABS: VALPROATE 25 ug/ml (50-100)
[2019-05-26] MEDS ORDERED: GENTAMICIN IV PER PHARMACY XX (15:00)
[2019-05-26] MEDS: VALPROATE INJ 500 MG in SOD CHLORIDE 0.9% 50 ML IVPB (16:03)
[2019-05-26] MEDS: LINEZOLID 600 MG/300 ML (PMX) 300 ML IVPB (17:21)
[2019-05-26] MEDS: GENTAMICIN 300 MG in SOD CHLORIDE 0.9% 100 ML IVPB (20:19)
[2019-05-27] MEDS: SOD CHLORIDE 0.9% 1,000 ML IV ×2 (02:51→14:56)
[2019-05-27] MEDS: VALPROATE INJ 500 MG in SOD CHLORIDE 0.9% 50 ML IVPB ×2 (02:54→14:57)
[2019-05-27 07:14] LABS: GENTAMICIN,RANDOM 4.3 ug/ml
[2019-05-27] MEDS: BALSAM PERU/CASTOR OIL 60 GM TUBE TOP ×2 (09:14→21:27)
[2019-05-27] MEDS: LINEZOLID 600 MG/300 ML (PMX) 300 ML IVPB ×2 (09:14→21:25)
[2019-05-27] MEDS: ENOXAPARIN 40 MG/0.4 ML SYG SC (09:36)
[2019-05-27] MEDS: GENTAMICIN 300 MG in SOD CHLORIDE 0.9% 100 ML IVPB (20:01)
[2019-05-28] MEDS: VALPROATE INJ 500 MG in SOD CHLORIDE 0.9% 50 ML IVPB ×2 (01:58→13:50)
[2019-05-28] MEDS: BALSAM PERU/CASTOR OIL 60 GM TUBE TOP ×2 (08:41→21:17)
[2019-05-28] MEDS: LINEZOLID 600 MG/300 ML (PMX) 300 ML IVPB ×2 (08:41→21:17)
[2019-05-28] MEDS: ENOXAPARIN 40 MG/0.4 ML SYG SC (08:50)
[2019-05-28] MEDS: GENTAMICIN 300 MG in SOD CHLORIDE 0.9% 100 ML IVPB (20:12)
[2019-05-29] MEDS: VALPROATE INJ 500 MG in SOD CHLORIDE 0.9% 50 ML IVPB ×2 (01:43→14:49)
[2019-05-29 07:56] LABS: VALPROATE 92 ug/ml (50-100)
[2019-05-29] MEDS: BALSAM PERU/CASTOR OIL 60 GM TUBE TOP ×2 (08:52→21:08)
[2019-05-29] MEDS: ENOXAPARIN 40 MG/0.4 ML SYG SC ×2 (08:52→15:06)
[2019-05-29] MEDS: LINEZOLID 600 MG/300 ML (PMX) 300 ML IVPB ×2 (08:52→21:07)
[2019-05-29] MEDS: BETAMETHASONE/CLOTRIMAZOLE 15 GM CR TOP (21:08)
[2019-05-30] MEDS: VALPROATE INJ 500 MG in SOD CHLORIDE 0.9% 50 ML IVPB ×2 (01:24→14:57)
[2019-05-30 07:26] LABS: BLOOD UREA NITROGEN 10 mg/dl (7-20)
[2019-05-30 07:37] LABS: VALPROATE 88 ug/ml (50-100)
[2019-05-30] MEDS: GENTAMICIN 300 MG in SOD CHLORIDE 0.9% 100 ML IVPB (08:56)
[2019-05-30] MEDS: BALSAM PERU/CASTOR OIL 60 GM TUBE TOP ×2 (08:56→21:45)
[2019-05-30] MEDS: BETAMETHASONE/CLOTRIMAZOLE 15 GM CR TOP ×2 (08:56→21:45)
[2019-05-30] MEDS: ENOXAPARIN 40 MG/0.4 ML SYG SC (09:04)
[2019-05-30] MEDS: LINEZOLID 600 MG/300 ML (PMX) 300 ML IVPB (10:12)
[2019-05-30] MEDS: CEFTRIAXONE 1 GM/NS 50 ML IVPB (21:45)
[2019-05-31] MEDS: VALPROATE INJ 500 MG in SOD CHLORIDE 0.9% 50 ML IVPB (02:09)
[2019-05-31] MEDS: BALSAM PERU/CASTOR OIL 60 GM TUBE TOP (09:58)
[2019-05-31] MEDS: BETAMETHASONE/CLOTRIMAZOLE 15 GM CR TOP (09:58)
[2019-05-31] MEDS: ENOXAPARIN 40 MG/0.4 ML SYG SC (10:41)
== END 2019-05-31 13:30 | DRG 871 ==
LOC: 2NE 05-26 10:40 → E/R 12:55 → 2NE 14:53
PROVIDERS: Internal Medicine
DX: A41.9 Sepsis, unspecified organism (principal); J69.0 Pneumonitis due to inhalation of food and vomit; G93.40 Encephalopathy, unspecified; N39.0 Urinary tract infection, site not specified; R13.10 Dysphagia, unspecified; R54 Age-related physical debility; G40.909 Epilepsy, unspecified, not intractable, without status epilepticus; E78.5 Hyperlipidemia, unspecified; I10 Essential (primary) hypertension; E03.9 Hypothyroidism, unspecified; B96.20 Unspecified Escherichia coli [E. coli] as the cause of diseases classified elsewhere; B95.0 Streptococcus, group A, as the cause of diseases classified elsewhere; B95.8 Unspecified staphylococcus as the cause of diseases classified elsewhere; Z79.82 Long term (current) use of aspirin; Z74.01 Bed confinement status; Z86.73 Personal history of transient ischemic attack (TIA), and cerebral infarction without residual deficits
CPT/HCPCS: 36415; 71045; 74230; 80048; 80053; 80164; 80170; 81001; 82565; 83036; 83605; 83735; 84100; 84484; 84520; 85025; 85610; 85730; 87040-91; 87086; 92526; 92610; 92611; 93005; 96374; 99285-25